=== PATIENT | male | born 1975 | race Caucasian/White ===

== ENCOUNTER 2018-07-12 18:46 | Emergency (ER) | payer MEDICAID ==
--- NOTE | 2018-07-12 18:48 | EDPHY ---
H & P Time Seen by Provider: 07/12/18 18:47 HPI/ROS: CHIEF COMPLAINT: Intoxicated HISTORY OF PRESENT ILLNESS: The patient is brought in by [employer] on a [facility] hold secondary to public intoxication. The patient was unable to [facility] to the [facility] because he was making loop comments to the staff. The patient denies any acute medical complaints and states that he was simply drinking today. The patient has no interest in sobriety. He denies any acute medical complaints. The patient takes no regular medications. REVIEW OF SYSTEMS: A comprehensive 10 point review of systems is otherwise negative aside from elements mentioned in the history of present illness. Source: Patient Exam Limitations: No limitations - Medical/Surgical History Hx Asthma: No Hx Chronic Respiratory Disease: No Hx Diabetes: No Hx Cardiac Disease: No Hx Renal Disease: No Hx Cirrhosis: No Hx Alcoholism: No Hx HIV/AIDS: No Hx Splenectomy or Spleen Trauma: No Other PMH: unobtainable - Social History Smoking Status: Current every day smoker - Physical Exam Exam: General Appearance: Disheveled male, alcohol on breath, no acute distress Eyes: Pupils equal and round no pallor or injection ENT, Mouth: Mucous membranes moist Respiratory: There are no retractions, lungs are clear to auscultation Cardiovascular: Regular rate and rhythm Gastrointestinal: Abdomen is soft and nontender, no masses, bowel sounds normal Neurological: A&O, normal motor function, normal sensory exam, normal cranial nerves Skin: Warm and dry, no rashes Musculoskeletal: Neck is supple nontender Extremities: symmetrical, full range of motion Psychiatric: Patient is oriented X 3, there is no agitation Constitutional: Initial Vital Signs Temperature (C) 37.1 C 07/12/18 18:46 Heart Rate 90 07/12/18 18:46 Respiratory Rate 16 07/12/18 18:46 Blood Pressure 102/69 07/12/18 18:46 O2 Sat (%) 93 07/12/18 18:46 O2 Delivery Mode Room Air Allergies/Adverse Reactions: No Known Allergies Allergy (Unverified 05/20/16 19:17) Home Medications: Medication Instructions Recorded NK [No Known Home Meds] 07/12/18 Medical Decision Making ED Course/Re-evaluation: The patient presents to the ED with alcohol intoxication and is unable to go to the [facility] secondary to crude comments that he made to staff. The patient will be observed in the emergency department pending a safe level of sobriety for discharge. Differential Diagnosis: Differential diagnosis considered includes alcohol intoxication, metabolic derangement, occult trauma Departure - Departure Disposition: Home, Routine, Self-Care Clinical Impression: Alcoholic intoxication Condition: Good Instructions: Alcohol Intoxication (ED) Additional Instructions: 1. I do recommend abstaining from alcohol. You should follow up with the [facility] if you desire further assistance with your alcohol dependence. Referrals: [facility] [Outside] - As per Instructions
[2018-07-12 19:31] VITALS: BP 103/68
== END 2018-07-12 22:10 | disposition home or self-care (01) ==
DX: F10.129 Alcohol abuse with intoxication, unspecified (principal)

== ENCOUNTER 2018-08-07 15:45 | Emergency (ER) | payer MEDICAID, OTHER ==
[2018-08-07] MEDS ORDERED: CEPHALEXIN 500 MG CAP PO ONE (17:28)
--- NOTE | 2018-08-07 17:30 | EDPHY ---
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 He notes pain. No paresthesia. Able to flex and extend without deficits. Occurred earlier today PRIMARY CARE PROVIDER: REVIEW OF SYSTEMS: 10 systems reviewed and are negative with exception of illness mentioned in the history of present illness PHYSICAL EXAM (Prior to examination, patient consented to physical exam, hands were washed and my usual and customary physical exam procedures followed) 1) GENERAL: Well-developed, well-nourished, alert and oriented. Appears to be in no acute distress. 2) HEAD: Normocephalic 3) HEENT: sclera anicteric 4) LUNGS: Breathing comfortably. 5) SKIN: Left thumb dorsal aspect IP joint 2 cm flap laceration with viable flap tissue 6) MUSCULOSKELETAL: Extensor function at the MCP and IP intact no deficits 7) NEUROLOGIC: Full sensation distally Smoking Status: Current every day smoker Constitutional: Initial Vital Signs Temperature (C) 37.1 C 08/07/18 15:50 Heart Rate 100 08/07/18 15:50 Respiratory Rate 18 08/07/18 15:50 Blood Pressure 110/76 08/07/18 15:50 O2 Sat (%) 95 08/07/18 15:50 O2 Delivery Mode Room Air Allergies/Adverse Reactions: No Known Allergies Allergy (Unverified 08/07/18 15:53) Home Medications: Medication Instructions Recorded Cephalexin [Keflex] 500 mg PO TID 5 Days cap 08/07/18 MDM/Departure - MDM Imaging Results: Imaging Impressions Finger X-Ray 08/07/18 17:28 Impression: Nothing acute identified. Images reviewed myself Procedures: Procedure: Laceration repair. I explained the indications, risks and benefits for both laceration repair and anesthetic administration. Verbal consent was obtained from the patient . The laceration on the left thumb was anesthetized using 0.5% bupivicaine without epinephrine digital nerve block. After anesthetic administered the patient was observed for a period of time and had no apparent adverse effects. The wound was cleaned, prepped, draped in normal sterile fashion and explored to its base. No foreign body seen, no foreign bodies palpated. There were no deep structures involved. No tendon injury was identified. The wound was repaired with 3 simple interrupted 5 O Ethilon sutures. The wound repair was simple. The procedure was performed by myself. Patient has been informed that scarring will occur, although efforts have been made to minimize this. Procedure: Splint Aluminum finger was applied by ER engineering specialist technician in order to reduce stress on the laceration site After application of the splint I returned and re-examined the patient. The splint was adequately immobilizing the joint and distal to the splint the patient's circulation and sensation were intact. Patient shows no signs of compartment syndrome. Was given orthopedic precautions. Medications Given: Discontinued Medications Cephalexin HCl (Keflex) 500 mg PO EDNOW ONE PRN Reason: Protocol Stop: 08/07/18 17:29 Last Admin: 08/07/18 17:52 Dose: 500 mg - Depart Disposition: Home, Routine, Self-Care Clinical Impression: Laceration of left thumb Qualifiers: Encounter type: initial encounter Damage to nail status: without damage Foreign body presence: without foreign body Qualified Code(s): S61.012A - Laceration without foreign body of left thumb without damage to nail, initial encounter Condition: Good Instructions: Care For Your Stitches (ED), Laceration (ED) Additional Instructions: Return to the ER if you develop redness, swelling, discharge, warmth to the wound, red streaks going up your arm, or any other symptoms that concern you. Stand Alone Forms: Work Comp Follow Up Prescriptions: Cephalexin [Keflex] 500 mg PO TID 5 Days cap Referrals: Return, to the ER in 10 days for suture removal [Other] - As per Instructions
[2018-08-07 18:41] VITALS: BP 112/78
== END 2018-08-07 18:41 | disposition home or self-care (01) ==
PROC: 0HQGXZZ Repair Left Hand Skin, External Approach (ICD-10-PCS; principal; 2018-08-07)
DX: S61.012A Laceration without foreign body of left thumb without damage to nail, initial encounter (principal); W26.0XXA Contact with knife, initial encounter; Y93.G1 Activity, food preparation and clean up; Y99.0 Civilian activity done for income or pay; F17.200 Nicotine dependence, unspecified, uncomplicated
CPT/HCPCS: L3925